=== PATIENT | male | born 1985 | race Caucasian/White ===

== ENCOUNTER 2018-03-31 03:30 | Emergency (ER) | payer SELFPAY ==
[~2018-03-31] VITALS: Ht 165.1 cm; Wt 78.5 kg
[2018-03-31 03:34] VITALS: Ht 165.1 cm; Wt 78.5 kg
[2018-03-31 06:13] VITALS: BP 134/79
== END 2018-03-31 06:13 | disposition home or self-care (01) ==
LOC: ED 03:30
DX: J06.9 Acute upper respiratory infection, unspecified (principal); F14.10 Cocaine abuse, uncomplicated
CPT/HCPCS: J1885